=== PATIENT | male | born 1950 | race Caucasian/White ===

== ENCOUNTER 2017-05-01 23:13 | Inpatient (IN) | payer MEDICARE, OTHER ==
--- NOTE | 2017-05-01 23:36 | ER Document Report ---
ED Syncope and Near Syncope - General Chief Complaint: Low Blood Pressure Stated Complaint: BLOOD PRESSURE ISSUE Time Seen by Provider: 05/01/17 23:21 Mode of Arrival: Medic Information source: Patient, Relative, Emergency Med Personnel TRAVEL OUTSIDE OF THE [place] IN LAST 30 DAYS: No - HPI Patient complains to provider of: Fainting Episode witnessed (by whom): No Single episoded occurred: THIS PM Symptoms prior to episode: None Position/Activity at time of episode: Sitting - EATING PIZZA Quality of pain: No pain Context: Became unresponsive Duration of LOC (min): 10 Injury location: None Current symptoms: None/feels back to normal Similar symptoms previously: Yes - ONCE, YEARS AGO Recently seen / treated by doctor: No - Related Data Allergies/Adverse Reactions: No Known Allergies Allergy (Unverified 05/02/17 00:33) Home Medications: Current Home Medications Diclofenac Sodium 75 mg PO BID 05/02/17 [History] Escitalopram Oxalate 20 mg PO DAILY 05/02/17 [History] Hydrocodone/Acetaminophen [Hydrocodon-Acetaminophn 10-325] 1 each PO Q6H PRN 02/07 [History] Levothyroxine Sodium [Synthroid 0.075 mg Tablet] 0.075 mg PO DAILY 05/02/17 [ History] Lisinopril 10 mg PO DAILY 05/02/17 [History] Omeprazole 40 mg PO DAILY 05/02/17 [History] Pioglitazone HCl 45 mg PO DAILY 05/02/17 [History] Tamsulosin HCl 0.4 mg PO BID 05/02/17 [History] Tizanidine HCl 4 mg PO Q6H 05/02/17 [History] Past Medical History - General Information source: Patient, Relative - Social History Smoking Status: Unknown if Ever Smoked Cigarette use (# per day): No Chew tobacco use (# tins/day): No Frequency of alcohol use: Occasional Drug Abuse: None Lives with: Spouse/Significant other Family History: None Patient has suicidal ideation: No Patient has homicidal ideation: No - Past Medical History Cardiac Medical History: Reports: Hx Hypertension Denies: Hx Heart Attack Pulmonary Medical History: Reports: None EENT Medical History: Reports: None Neurological Medical History: Reports: None Endocrine Medical History: Reports: Hx Diabetes Mellitus Type 2 Renal/ Medical History: Reports: None Malignancy Medical History: Reports None GI Medical History: Reports: None Musculoskeltal Medical History: Reports None Skin Medical History: Reports None Psychiatric Medical History: Reports: None Infectious Medical History: Reports: None Past Surgical History: Reports: Hx Gastric Bypass Surgery - GASTRIC SLEEVE Review of Systems - Review of Systems Constitutional: Diaphoresis. denies: Chills, Fever EENT: No symptoms reported Cardiovascular: See HPI Respiratory: No symptoms reported. denies: Cough, Short of breath Gastrointestinal: No symptoms reported. denies: Diarrhea, Nausea, Vomiting Genitourinary: No symptoms reported Musculoskeletal: No symptoms reported Skin: No symptoms reported Neurological/Psychological: No symptoms reported Physical Exam - Vital signs Vitals: Temp 97.3 F 05/01/17 23:16 Interpretation: Hypotensive, Bradycardic - General General appearance: Appears well, Alert In distress: None - HEENT Head: Normocephalic Eyes: Normal Conjunctiva: Normal Ears: Normal Nasal: Normal Mouth/Lips: Normal Mucous membranes: Normal Pharynx: Normal Neck: Normal - Respiratory Respiratory status: No respiratory distress Breath sounds: Normal - Cardiovascular Rhythm: Regular, Bradycardia Heart sounds: Normal auscultation Murmur: No - Abdominal Inspection: Obese Bowel sounds: Normal - Back Back: Normal - Extremities General upper extremity: Normal inspection General lower extremity: Normal inspection. No: Tender, Edema - Neurological Neuro grossly intact: Yes Cognition: Normal Orientation: AAOx4 - Psychological Associated symptoms: Normal affect, Normal mood - Skin Skin Temperature: Warm Skin Moisture: Moist Skin Color: Normal Skin Turgor: Elastic Course - Vital Signs Vital signs: Temp Pulse Resp BP Pulse Ox 97.3 F 49 L 13 93/54 L 96 05/01/17 23:16 05/02/17 00:00 05/02/17 00:00 05/02/17 00:00 05/02/17 00:00 - Laboratory Result Diagrams: 05/01/17 23:42 05/01/17 23:42 Laboratory results interpreted by me: 05/01/17 05/01/17 23:42 23:42 RBC 3.95 L Hgb 12.6 L Hct 37.0 L Chloride 110 H Carbon Dioxide 18 L Total Bilirubin < 0.1 L ALT 19 L Total Protein 6.2 L - Diagnostic Test Radiology reviewed: Image reviewed, Reports reviewed - EKG Interpretation by Me EKG shows normal: Sinus rhythm Rate: Bradycardia - Consults DR. KIM Time consulted: 00:35 Consulted provider: will come to ER Discharge - Discharge Clinical Impression: Syncope, cardiogenic, Symptomatic bradycardia Condition: Good Disposition: ADMITTED OBSERVATION Admitting Provider: Hospitalist Unit Admitted: [facility]
[2017-05-02 00:03] LABS: ABSOLUTE BASOPHILS # (AUTO) 0.1 10^3/uL (0.0-0.2); ABSOLUTE EOSINOPHILS # (AUTO) 0.1 10^3/uL (0.0-0.6); ABSOLUTE LYMPHOCYTES (AUTO) 0.7 10^3/uL (0.5-4.7); ABSOLUTE MONOCYTES (AUTO) 0.4 10^3/uL (0.1-1.4); ABSOLUTE NEUT (AUTO) 3.1 10^3/uL (1.7-8.2); BASOPHILS % (AUTO) 1.2 % (0-2); EOSINOPHILS % (AUTO) 2.1 % (0-6); HEMOGLOBIN 12.6 g/dL (13.5-17.0); LYMPHOCYTES % (AUTO) 16.2 % (13-45); MEAN CORPUSCULAR HEMOGLOBIN 31.9 pg (27.0-33.4); MEAN CORPUSCULAR HGB CONC 34.2 g/dL (32.0-36.0); MEAN CORPUSCULAR VOLUME 94 fl (80-97); MONOCYTES % (AUTO) 9.6 % (3-13); PLATELET COUNT 154 10^3/uL (150-450); RED BLOOD COUNT 3.95 10^6/uL (4.35-5.55); RED CELL DISTRIBUTION WIDTH 13.2 % (11.5-14.0); SEGMENTED NEUTROPHILS % (AUTO) 70.9 % (42-78); TOTAL CELLS COUNTED % (AUTO) 100 %; WHITE BLOOD COUNT 4.4 10^3/uL (4.0-10.5)
[2017-05-02 00:05] LABS: ALANINE AMINOTRANSFERASE 19 U/L (21-72); ALKALINE PHOSPHATASE 81 U/L (38-126); ANION GAP 15 (5-19); ASPARTATE AMINO TRANSFERASE 18 U/L (17-59); BLOOD UREA NITROGEN 19 mg/dL (7-20); CALCIUM 8.9 mg/dL (8.4-10.2); CARBON DIOXIDE 18 mmol/L (22-30); CHLORIDE 110 mmol/L (98-107); CREATINE KINASE 99 U/L (55-170); GLUCOSE 95 mg/dL (75-110); MAGNESIUM 1.9 mg/dL (1.6-2.3); POTASSIUM 3.8 mmol/L (3.6-5.0); SODIUM 142.6 mmol/L (137-145); TOTAL PROTEIN 6.2 g/dL (6.3-8.2)
[2017-05-02 00:06] LABS: BILIRUBIN,TOTAL < 0.1 mg/dL (0.2-1.3)
[2017-05-02 00:17] LABS: CREATINE KINASE MB 1.44 ng/mL (<4.55); NT PRO BNP 87 pg/mL (5-900)
[2017-05-02 00:28] LABS: TROPONIN I < 0.012 ng/mL
[2017-05-02 00:48] LABS: APPEARANCE,URINE SLIGHTLY-CLOUDY; BILIRUBIN,URINE NEGATIVE (NEGATIVE); COLOR,URINE YELLOW; GLUCOSE, URINE NEGATIVE (NEGATIVE); KETONES,URINE NEGATIVE (NEGATIVE); LEUKOCYTE ESTERASE,URINE NEGATIVE (NEGATIVE); NITRITE,URINE NEGATIVE (NEGATIVE); PROTEIN,URINE NEGATIVE (NEGATIVE); URINE SPECIFIC GRAVITY 1.014; UROBILINOGEN,URINE NEGATIVE mg/dL (<2.0)
[2017-05-02] MEDS ORDERED: ACETAMINOPHEN 325 MG TABLET PO PRN (01:14)
[2017-05-02 01:25] LABS: VENOUS BLOOD BASE EXCESS -6.1 mmol/L; VENOUS BLOOD HCO3 20.3 mmol/L (20-32); VENOUS BLOOD PCO2 43.4 mmHg (35-63); VENOUS BLOOD PH 7.29 (7.30-7.42)
[2017-05-02 01:47] LABS: URINE AMPHETAMINES SCREEN NEGATIVE; URINE BARBITURATES SCREEN NEGATIVE; URINE BENZODIAZEPINES SCREEN UNCONFIRMED POSITIVE; URINE COCAINE SCREEN NEGATIVE; URINE MARIJUANA (THC) SCREEN UNCONFIRMED POSITIVE; URINE METHADONE SCREEN NEGATIVE; URINE PHENCYCLIDINE SCREEN NEGATIVE
[2017-05-02] MEDS ORDERED: INSULIN LISPRO 100 UNIT/ML 3 ML VIAL SUBCUT PRN (01:51)
[2017-05-02] MEDS ORDERED: DEXTROSE 50%-WATER 25 GM/50 ML DISP.SYRIN IV PRN ×2 (01:51)
[2017-05-02] MEDS ORDERED: GLUCAGON,HUMAN RECOMB 1 MG INJ IM PRN (01:51)
[2017-05-02] MEDS ORDERED: DEXTROSE 40% GEL 15 GM TUBE PO PRN ×2 (01:51)
[2017-05-02] MEDS ORDERED: THIAMINE HCL 100 MG, FOLIC ACID 1 MG in NORMAL SALINE 250 ML IV ONE (01:56)
[2017-05-02] MEDS ORDERED: MAGNESIUM SULFATE/D5W 1 GM/100 ML RTUPB IV ONE (01:57)
[2017-05-02] MEDS: NORMAL SALINE 1000 ML 1,000 ML IV PRN ×2 (02:03→10:45)
[2017-05-02] MEDS ORDERED: THIAMINE HCL INJ 200 MG/2 ML VIAL IV PRN (02:21)
[2017-05-02] MEDS ORDERED: FOLIC ACID INJ 5 MG/1 ML 10 ML VIAL IV PRN (02:21)
[2017-05-02 03:15] LABS: FREE T3 3.07 pg/mL (2.77-5.27); FREE T4 (FREE THYROXINE) 0.89 ng/dL (0.78-2.19)
[2017-05-02 03:29] LABS: THYROID STIMULATING HORMONE 12.4 uIU/mL (0.47-4.68)
[2017-05-02] MEDS ORDERED: LEVOTHYROXINE SODIUM 0.075 MG TABLET PO SCH (06:00)
[2017-05-02] MEDS: HEPARIN SOD (PORCINE) 5,000 UNIT/ML 1 ML SYRINGE SUBCUT SCH ×3 (06:20→21:54)
[2017-05-02 06:55] LABS: CREATINE KINASE MB 9.05 ng/mL (<4.55)
[2017-05-02 07:04] LABS: TROPONIN I < 0.012 ng/mL
--- NOTE | 2017-05-02 07:48 | EKG REPORT ---
SEVERITY:- OTHERWISE NORMAL ECG - SINUS BRADYCARDIA : Confirmed by: Won Sharma MD 02-May-2017 07:47:35
--- NOTE | 2017-05-02 07:48 | EKG REPORT ---
SEVERITY:- NORMAL ECG - SINUS RHYTHM : Confirmed by: Won Sharma MD 02-May-2017 07:47:26
--- NOTE | 2017-05-02 07:55 | PDOC H&P ---
History of Present Illness Admission Date/PCP: 05/02/17 01:34 Cary Chisholm History of Present Illness: CASI BEST JR is a 66 year old male with past medical history of obesity, obstructive sleep apnea, diabetes mellitus, hypertension, squamous cell cancer, LAP-BAND failure with gastric sleeve who presents to the emergency department syncope. Patient reports that he had several shots of liquor tonight as well as several beers and took at least 3 Zanaflex and 2 Xanax. He reports that he slept and then began eating pizza when he wandered into his kitchen and passed out. He did not hit his head. He denies any antecedent illness. He reports that several years ago he was told he needed a pacemaker for his bradycardia. Patient currently denies any chest pain. He was given a liter of IV fluids by the EMS service with improvement of his heart rate and blood pressure. He is referred to hospital service for some dramatic bradycardia and syncope. Upon bedside review of patient's medications a bottle of #360 Zanaflex contains only 6 tablets and this was filled on 03/23/2017. Past Medical History Cardiac Medical History: Reports: Hyperlipidema, Hypertension Denies: Myocardial Infarction Pulmonary Medical History: Reports: Sleep Apnea EENT Medical History: Reports: None Neurological Medical History: Reports: None Endocrine Medical History: Reports: Diabetes Mellitus Type 2, Obesity Renal/ Medical History: Reports: None Malignancy Medical History: Reports: None GI Medical History: Reports: None Musculoskeltal Medical History: Reports: None Skin Medical History: Reports: None Psychiatric Medical History: Reports: Alcohol Dependency, Substance Abuse Infectious Medical History: Reports: None Past Surgical History Past Surgical History: Reports: Gastric Bypass Surgery - GASTRIC SLEEVE, Orthopedic Surgery, Tonsillectomy Social History Lives with: Spouse/Significant other Smoking Status: Never Smoker Frequency of Alcohol Use: Heavy Amount of Alcoholic Beverages Per Day: Admits to 6-8 beers daily and some shots Hx Recreational Drug Use: Yes Drugs: Other Hx Prescription Drug Abuse: Yes - Advance Directive Resuscitation Status: Full Code Surrogate healthcare decision maker:: Kina Best, Family History Family History: COPD, Malignancy Parental Family History Reviewed: Yes Children Family History Reviewed: Yes Sibling(s) Family History Reviewed.: Yes Medication/Allergy Home Medications: Diclofenac Sodium 75 mg PO BID 05/02/17 Escitalopram Oxalate 20 mg PO DAILY 05/02/17 Hydrocodone/Acetaminophen [Hydrocodon-Acetaminophn 10-325] 1 each PO Q6H PRN 02/07 Levothyroxine Sodium [Synthroid 0.075 mg Tablet] 0.075 mg PO DAILY 05/02/17 Lisinopril 10 mg PO DAILY 05/02/17 Omeprazole 40 mg PO DAILY 05/02/17 Pioglitazone HCl 45 mg PO DAILY 05/02/17 Tamsulosin HCl 0.4 mg PO BID 05/02/17 Tizanidine HCl 4 mg PO Q6H 05/02/17 Allergies/Adverse Reactions: No Known Allergies Allergy (Unverified 05/02/17 00:33) Review of Systems Constitutional: ABSENT: chills, fever(s), headache(s), weight gain, weight loss Eyes: ABSENT: visual disturbances Ears: ABSENT: hearing changes Cardiovascular: ABSENT: chest pain, dyspnea on exertion, edema, orthropnea, palpitations Respiratory: ABSENT: cough, hemoptysis Gastrointestinal: ABSENT: abdominal pain, constipation, diarrhea, hematemesis, hematochezia, nausea, vomiting Genitourinary: ABSENT: dysuria, hematuria Musculoskeletal: ABSENT: joint swelling Integumentary: ABSENT: rash, wounds Neurological: PRESENT: syncope. ABSENT: abnormal gait, abnormal speech, confusion, dizziness, focal weakness Psychiatric: ABSENT: anxiety, depression, homidical ideation, suicidal ideation Endocrine: ABSENT: cold intolerance, heat intolerance, polydipsia, polyuria Hematologic/Lymphatic: ABSENT: easy bleeding, easy bruising Physical Exam Vital Signs: Temp Pulse Resp BP Pulse Ox 97.3 F 51 L 16 102/59 L 96 05/01/17 23:16 05/02/17 01:00 05/02/17 01:00 05/02/17 01:00 05/02/17 01:00 General appearance: PRESENT: no acute distress, obese, well-developed, well- nourished Head exam: PRESENT: atraumatic, normocephalic Eye exam: PRESENT: conjunctiva pink, EOMI, PERRLA. ABSENT: scleral icterus Ear exam: PRESENT: normal external ear exam Mouth exam: PRESENT: dry mucosa, tongue midline Neck exam: ABSENT: carotid bruit, JVD, lymphadenopathy, thyromegaly, tracheal deviation Respiratory exam: PRESENT: clear to auscultation [place], unlabored. ABSENT: rales , rhonchi, wheezes Cardiovascular exam: PRESENT: RRR, +S1, +S2. ABSENT: diastolic murmur, rubs, systolic murmur Pulses: PRESENT: normal dorsalis pedis pul Vascular exam: PRESENT: normal capillary refill GI/Abdominal exam: PRESENT: normal bowel sounds, soft. ABSENT: distended, guarding, mass, organolmegaly, rebound, tenderness Rectal exam: PRESENT: deferred Extremities exam: PRESENT: full ROM. ABSENT: calf tenderness, clubbing, pedal edema Neurological exam: PRESENT: alert, awake, oriented to person, oriented to place , oriented to time, oriented to situation, CN II-XII grossly intact. ABSENT: motor sensory deficit Psychiatric exam: PRESENT: appropriate affect, normal mood. ABSENT: homicidal ideation, suicidal ideation Skin exam: PRESENT: dry, intact, warm. ABSENT: cyanosis, rash Results Laboratory Results: 05/01/17 05/01/17 05/01/17 23:42 23:42 23:42 WBC 4.4 Hgb 12.6 L MCV 94 Plt Count 154 VBG pH Sodium 142.6 Potassium 3.8 Chloride 110 H Carbon Dioxide 18 L Anion Gap 15 BUN 19 Creatinine 0.91 Glucose 95 Calcium 8.9 Magnesium 1.9 Total Bilirubin < 0.1 L AST 18 ALT 19 L Alkaline Phosphatase 81 Creatine Kinase 99 CK-MB (CK-2) 1.44 Troponin I TSH Free T4 Free T3 pg/mL Urine Opiates Screen U Benzodiazepines Scrn U Marijuana (THC) Screen 05/01/17 05/02/17 05/02/17 23:42 00:28 01:15 WBC Hgb MCV Plt Count VBG pH 7.29 L Sodium Potassium Chloride Carbon Dioxide Anion Gap BUN Creatinine Glucose Calcium Magnesium Total Bilirubin AST ALT Alkaline Phosphatase Creatine Kinase CK-MB (CK-2) Troponin I TSH 12.40 H Free T4 0.89 Free T3 pg/mL 3.07 Urine Opiates Screen UNCONFIRMED POSITIVE U Benzodiazepines Scrn UNCONFIRMED POSITIVE U Marijuana (THC) Screen UNCONFIRMED POSITIVE 05/02/17 05/02/17 06:07 06:07 WBC Hgb MCV Plt Count VBG pH Sodium Potassium Chloride Carbon Dioxide Anion Gap BUN Creatinine Glucose Calcium Magnesium Total Bilirubin AST ALT Alkaline Phosphatase Creatine Kinase 234 H CK-MB (CK-2) 9.05 H Troponin I < 0.012 TSH Free T4 Free T3 pg/mL Urine Opiates Screen U Benzodiazepines Scrn U Marijuana (THC) Screen Assessment & Plan - Diagnosis (1) Symptomatic bradycardia Is this a current diagnosis for this admission?: Yes Plan: Place patient on IMCU with pacer pads. Patient is bradycardic, but appears to respond to fluids and stimuli. Will obtain echo. Concern for underlying cardiomyopathy in light of patient's use of Actos, alcohol, and abuse of medications. Will rule out for acute coronary syndrome. Feel the patient's bradycardia is also highly contributed to his abuse of Zanaflex which can cause bradycardia and syncope. (2) Polysubstance abuse Is this a current diagnosis for this admission?: Yes Plan: Patient's drug screen is positive for opiates, benzodiazepines, and marijuana. Patient is prescribed opiates he reports and is not prescribed benzodiazepines. Patient reports misusing his Zanaflex taking the bulk of a 3 month supply and little over 30 days. 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 Place patient on thiamine, folic acid , and monitor for signs of withdrawal (5) Obstructive sleep apnea Is this a current diagnosis for this admission?: Yes Plan: Patient on CPAP of 8 nightly (6) Obesity Is this a current diagnosis for this admission?: Yes - Time Time Spent: 50 to 70 Minutes Medications reviewed and adjusted accordingly: Yes Anticipated discharge: Home Within: within 72 hours - Inpatient Certification Based on my medical assessment, after consideration of the patient's comorbidities, presenting symptoms, or acuity I expect that the services needed warrant INPATIENT care.: Yes I certify that my determination is in accordance with my understanding of Medicare's requirements for reasonable and necessary INPATIENT services [42 CFR 412.3e].: Yes Medical Necessity: Need For IV Fluids, Need For Continuous Telemetry Monitoring 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
--- NOTE | 2017-05-02 08:19 | RADIOLOGY REPORT (SQ) ---
EXAM DESCRIPTION: CHEST SINGLE VIEW COMPLETED DATE/TIME: 05/02/2017 12:24 am REASON FOR STUDY: SYNCOPE COMPARISON: None. EXAM PARAMETERS: NUMBER OF VIEWS: One view. TECHNIQUE: Single frontal radiographic view of the chest acquired. RADIATION DOSE: NA LIMITATIONS: None. FINDINGS: LUNGS AND PLEURA: No opacities, masses or pneumothorax. No pleural effusion. MEDIASTINUM AND HILAR STRUCTURES: No masses. Contour normal. HEART AND VASCULAR STRUCTURES: Mild cardiomegaly BONES: No acute findings. HARDWARE: None in the chest. OTHER: Defibrillator pads over the chest IMPRESSION: Mild cardiomegaly. No acute infiltrates TECHNICAL DOCUMENTATION: JOB ID: [id number] [employer]- All Rights Reserved
[2017-05-02] MEDS ORDERED: ESCITALOPRAM OXALATE 10 MG TABLET PO SCH (10:00)
[2017-05-02] MEDS ORDERED: (PENDING PHARMACY ID) (Diclofenac Sodium [Diclofenac Sodium] 75 MG) PO SCH (10:00)
[2017-05-02] MEDS ORDERED: PIOGLITAZONE HCL 45 MG PO SCH (10:00)
[2017-05-02] MEDS: FLUTICASONE NASAL SPRAY 50 MCG/SPRY 120 SPRAY/16 GM NASL SCH ×2 (10:35→21:53)
[2017-05-02 12:23] LABS: CREATINE KINASE MB 7.08 ng/mL (<4.55)
[2017-05-02 12:29] LABS: TROPONIN I < 0.012 ng/mL
[2017-05-02] MEDS ORDERED: NORMAL SALINE 1000 ML 1,000 ML IV PRN (13:10)
--- NOTE | 2017-05-02 14:44 | PROGRESS NOTE E ---
Progress Note NAME: CASI BEST : 1950 AGE: 66Y DATE: 05/02/2017 ROOM: ED10 SUBJECTIVE: The patient is currently lying in bed. He states that he feels okay today; overall weak. The patient denies any nausea, vomiting, diarrhea. No shortness of breath, dizziness or chest pain. The patient does admit to chills. The patient has been afebrile. His blood pressures have been in a good range and the patient does not voice any other concerns at this time. REVIEW OF SYSTEMS: Rest of the review of systems is negative. MEDICATIONS: Medications have been reviewed. OBJECTIVE: GENERAL: The patient is a 66-year-old male who is awake, alert. He is oriented to person, place, time, situation. He is verbal, conversational; does not appear to be distressed. VITAL SIGNS: As follows: Temperature is 97.3, pulse at 47, respirations 20, blood pressure 151/72. Oxygen saturation 98% on room air. SKIN: Is warm and dry. No rash. He is not diaphoretic. HEENT: Pupils are equal round, reactive to light and accommodation. Conjunctivae pink. There is no evidence of JVP. CARDIOVASCULAR: Heart is bradycardic, regular. Is no rub. CHEST: Is clear, symmetrical, unlabored. ABDOMEN: Soft, nontender, nondistended. BACK: No CVA tenderness or sacral edema. EXTREMITIES: No clubbing, cyanosis, edema. PSYCHIATRIC: Appropriate affect. DIAGNOSTICS: Lab values are as follows. Hematology obtained on 05/01/2017: WBCs are 4.4, hemoglobin is 12.6, hematocrit is 37.0, platelet count is 154,000. Chemistry obtained on 05/02/2017: Sodium is 142, potassium 3.9 chloride is 110, carbon dioxide 18, BUN 19, creatinine is 0.91, glucose 95, calcium is 8.9, magnesium is 1.9. IMPRESSION AND PLAN: 1. SYMPTOMATIC BRADYCARDIA. The patient has been seen by cardiology. The patient appears to be stable at this time. Continue to hold medication such as Zanaflex and follow. 2. POLYSUBSTANCE ABUSE. The patient has been misusing Zanaflex as well as opiates, benzo's, and marijuana. 3. DIABETES MELLITUS, TYPE 2. Will continue sliding scale coverage. Have discontinued Actos. 4. ALCOHOL DEPENDENCY, CONTINUOUS. Will continue to supplement beer as well as B vitamins. 5. OBSTRUCTIVE SLEEP APNEA. Will continue CPAP at night. 6. OBESITY. THE PATIENT IS STATUS POST GASTRIC SLEEVING. DISPOSITION: The patient is a FULL CODE. Pending the patient's symptomatology and diagnostic findings, will re-evaluate as needed. Time spent on this followup, including assessment, plan, physical examination, patient education, review of records and specialty collaboration: 60 minutes. DICTATING PHYSICIAN: KEVIN BRAY NP [id number] PHY#: [id number] [id number] JOB#: [id number] ACCT: [id number] cc: > MTDD
[2017-05-02] MEDS: BEER PO SCH (16:10)
[2017-05-02] MEDS ORDERED: NORMAL SALINE 1000 ML 1,000 ML with POTASSIUM CHLORIDE 20 MEQ, MAGNESIUM SULFATE 8 MEQ,... IV SCH ×5 (18:00)
[2017-05-02] MEDS: TAMSULOSIN HCL 0.4 MG CAP.SR.24H PO SCH (18:36)
--- NOTE | 2017-05-02 18:38 | EKG REPORT ---
SEVERITY:- OTHERWISE NORMAL ECG - SINUS BRADYCARDIA ATRIAL PREMATURE COMPLEX : Confirmed by: Won Sharma MD 02-May-2017 18:37:33
[2017-05-02 19:00] LABS: CREATINE KINASE MB 5.11 ng/mL (<4.55)
[2017-05-02 19:06] LABS: TROPONIN I < 0.012 ng/mL
--- NOTE | 2017-05-02 19:30 | XCELERA REPORT ---
[address] [address] Transthoracic Echocardiogram Report Name: CASI BEST JR Age: 66 yrs Gender: Male : 1950 Patient Status: Inpatient Patient Location: [place] [address]^A Study Date: 05/02/2017 09:49 AM Height: 71 in Weight: 250 lb BSA: 2.3 m2 Procedure: A complete two-dimensional transthoracic echocardiogram was performed (2D, M-mode, spectral and color flow Doppler). The study was technically difficult with many images being suboptimal in quality. Reason For Study: bradycardia, cardiomyopathy Ordering Physician: KALANI MURPHY Performed By: Abril Victoria Interpretation Summary Left ventricular systolic function is low normal. There is normal left ventricular wall thickness. The left ventricle is grossly normal size. Doppler measurements suggest pseudonormalized left ventricular relaxation, which is associated with grade II/IV or mild to moderate diastolic dysfunction Wall motion cannot be accurately commented on, but no definite regional wall motion abnormalities noted. The right ventricle is mildly dilated. The right ventricular systolic function is normal. The right atrium is normal. The left atrium is mildly dilated. There is a trace amount of mitral regurgitation There is no mitral valve stenosis. There is no aortic valve stenosis No aortic regurgitation is present. There is a trace to mild amount of tricuspid regurgitation There is mild to moderate pulmonary hypertension by echo Right ventricular systolic pressure is estimated to be elevated at 40- 50mmHg. The aortic root is not well visualized. The inferior vena cava was not well visualized There is no pericardial effusion. MMode/2D Measurements & Calculations RVDd: 3.7 cm LVIDd: 6.6 cm FS: 36.5 % Ao root diam: 2.7 cm IVSd: 0.78 cm LVIDs: 4.2 cm EDV(Teich): 226.2 ml LVPWd: 1.1 cm ESV(Teich): 79.0 ml Ao root area: 5.6 cm2 EF(Teich): 65.1 % LA dimension: 3.9 cm Doppler Measurements & Calculations MV E max mikayla: MV P1/2t max mikayla: Ao V2 max: LV V1 max P.7 cm/sec 101.7 cm/sec 162.9 cm/sec 4.3 mmHg MV A max mikayla: MV P1/2t: 92.2 msec Ao max PG: LV V1 max: 103.2 cm/sec 10.6 mmHg 104.1 cm/sec MV E/A: 1.0 MVA(P1/2t): 2.4 cm2 MV dec slope: 322.9 cm/sec2 PA V2 max: 109.6 cm/sec PA max P.8 mmHg Left Ventricle The left ventricle is grossly normal size. There is normal left ventricular wall thickness. Left ventricular systolic function is low normal. Doppler measurements suggest pseudonormalized left ventricular relaxation, which is associated with grade II/IV or mild to moderate diastolic dysfunction. Wall motion cannot be accurately commented on, but no definite regional wall motion abnormalities noted. Right Ventricle The right ventricle is mildly dilated. There is normal right ventricular wall thickness. The right ventricular systolic function is normal. Atria The right atrium is normal. The left atrium is mildly dilated. Interarterial septum not well visualized and not well dopplered. Cannot comment on ASD/PFO presence. Mitral Valve The mitral valve is grossly normal. There is no mitral valve stenosis. There is a trace amount of mitral regurgitation. Aortic Valve The aortic valve is not well visualized secondary to technical limitations. There is no aortic valve stenosis. No aortic regurgitation is present. Tricuspid Valve The tricuspid valve is not well visualized secondary to technical limitations. There is no tricuspid stenosis. There is a trace to mild amount of tricuspid regurgitation. There is mild to moderate pulmonary hypertension by echo. Right ventricular systolic pressure is estimated to be elevated at 40-50mmHg. Pulmonic Valve The pulmonic valve is not well visualized. Great Vessels The aortic root is not well visualized. The inferior vena cava was not well visualized. Effusions There is no pericardial effusion. : KALANI MURPHY > Wilfrido Aburto
[2017-05-02] MEDS ORDERED: MONTELUKAST SODIUM 10 MG TABLET PO SCH (22:00)
[2017-05-03] MEDS ORDERED: LEVOTHYROXINE SODIUM 0.075 MG TABLET PO SCH (06:00)
[2017-05-03 06:35] LABS: ABSOLUTE EOSINOPHILS # (AUTO) 0.1 10^3/uL (0.0-0.6); ABSOLUTE LYMPHOCYTES (AUTO) 0.9 10^3/uL (0.5-4.7); ABSOLUTE MONOCYTES (AUTO) 0.4 10^3/uL (0.1-1.4); ABSOLUTE NEUT (AUTO) 2.5 10^3/uL (1.7-8.2); BASOPHILS % (AUTO) 0.8 % (0-2); EOSINOPHILS % (AUTO) 2.3 % (0-6); HEMATOCRIT 37.5 % (37.9-51.0); HEMOGLOBIN 12.7 g/dL (13.5-17.0); LYMPHOCYTES % (AUTO) 22.7 % (13-45); MEAN CORPUSCULAR HEMOGLOBIN 31.6 pg (27.0-33.4); MEAN CORPUSCULAR HGB CONC 33.9 g/dL (32.0-36.0); MEAN CORPUSCULAR VOLUME 93 fl (80-97); MONOCYTES % (AUTO) 9.9 % (3-13); PLATELET COUNT 137 10^3/uL (150-450); RED BLOOD COUNT 4.02 10^6/uL (4.35-5.55); RED CELL DISTRIBUTION WIDTH 13.6 % (11.5-14.0); SEGMENTED NEUTROPHILS % (AUTO) 64.3 % (42-78); TOTAL CELLS COUNTED % (AUTO) 100 %; WHITE BLOOD COUNT 3.9 10^3/uL (4.0-10.5)
[2017-05-03 06:46] LABS: ANION GAP 10 (5-19); BLOOD UREA NITROGEN 12 mg/dL (7-20); CALCIUM 9.2 mg/dL (8.4-10.2); CARBON DIOXIDE 24 mmol/L (22-30); CHLORIDE 111 mmol/L (98-107); CHOLESTEROL 222.12 mg/dL (0-200); GLUCOSE 98 mg/dL (75-110); MAGNESIUM 2.1 mg/dL (1.6-2.3); PHOSPHORUS 3.4 mg/dL (2.5-4.5); POTASSIUM 4.2 mmol/L (3.6-5.0); SODIUM 144.5 mmol/L (137-145); TRIGLYCERIDES 223 mg/dL (<150)
[2017-05-03 06:56] LABS: DIRECT LDL 152 mg/dL (<100)
[2017-05-03 07:04] LABS: VLDL CHOLESTEROL 44.6 mg/dL (10-31)
[2017-05-03] MEDS: HEPARIN SOD (PORCINE) 5,000 UNIT/ML 1 ML SYRINGE SUBCUT SCH ×2 (07:12→16:03)
[2017-05-03] MEDS ORDERED: LANSOPRAZOLE 30 MG TAB.RAP.DR PO SCH (08:00)
--- NOTE | 2017-05-03 08:03 | EKG REPORT ---
SEVERITY:- NORMAL ECG - SINUS RHYTHM : Confirmed by: Won Sharma MD 03-May-2017 08:02:30
[2017-05-03] MEDS: BEER PO SCH ×3 (08:51→12:45)
[2017-05-03] MEDS ORDERED: ESCITALOPRAM OXALATE 10 MG TABLET PO SCH (10:00)
--- NOTE | 2017-05-03 10:44 | PDOC CONSULTATION ---
Consultation Consult Date: 05/02/17 Attending physician:: KEVIN BRAY Consult reason:: Chest pain History of Present Illness Admission Date/PCP: 05/02/17 01:34 Patient complains of: Syncope History of Present Illness: CASI BEST JR is a 66 year old male with past medical history of obesity, obstructive sleep apnea, diabetes mellitus, hypertension, squamous cell cancer, LAP-BAND failure with gastric sleeve who presents to the emergency department syncope. Patient reports that he had several shots of liquor tonight as well as several beers and took at least 3 Zanaflex and 2 Xanax. He reports that he slept and then began eating pizza when he wandered into his kitchen and passed out. He did not hit his head. He denies any antecedent illness. He reports that several years ago he was told he needed a pacemaker for his bradycardia. Patient currently denies any chest pain. He was given a liter of IV fluids by the EMS service with improvement of his heart rate and blood pressure. He is referred to hospital service for some dramatic bradycardia and syncope. This history was reviewed, confirmed and supplemented. Patient denied any prior history of myocardial infarction angina or congestive heart failure. Past Medical History Cardiac Medical History: Reports: Hyperlipidema, Hypertension Denies: Myocardial Infarction Pulmonary Medical History: Reports: None, Sleep Apnea EENT Medical History: Reports: None Neurological Medical History: Reports: None Endocrine Medical History: Reports: Diabetes Mellitus Type 2, Obesity Renal/ Medical History: Reports: None Malignancy Medical History: Reports: None GI Medical History: Reports: None Musculoskeltal Medical History: Reports: None Skin Medical History: Reports: None Psychiatric Medical History: Reports: None, Alcohol Dependency, Substance Abuse Infectious Medical History: Reports: None Past Surgical History Past Surgical History: Reports: Gastric Bypass Surgery - GASTRIC SLEEVE, Orthopedic Surgery, Tonsillectomy Social History Information Source: Patient Lives with: Spouse/Significant other Smoking Status: Former Smoker Number of Years Smokin Last Time Smoked: 1979 Frequency of Alcohol Use: Heavy Hx Recreational Drug Use: No Drugs: None Hx Prescription Drug Abuse: No - Advance Directive Resuscitation Status: Full Code Surrogate healthcare decision maker:: Patient spouse Family History Family History: COPD, Malignancy Parental Family History Reviewed: Yes Children Family History Reviewed: Yes Sibling(s) Family History Reviewed.: Yes Medication/Allergy Home Medications: Diclofenac Sodium [Voltaren] 75 mg PO BID 05/02/17 Escitalopram Oxalate [Lexapro] 20 mg PO DAILY 05/02/17 Levothyroxine Sodium [Synthroid] 75 mcg PO Q6AM 05/02/17 Lisinopril [Prinivil 10 mg Tablet] 10 mg PO DAILY 05/02/17 Omeprazole 40 mg PO DAILY 05/02/17 Tamsulosin HCl [Flomax 0.4 mg Cap.sr] 0.4 mg PO BID 05/02/17 Fluticasone Propionate [Flonase Nasal [place] 50 Mcg/[place] 16 gm] 1 spray NASL Q12 #1 spray.pump 05/03/17 Montelukast Sodium [Singulair 10 mg Tablet] 10 mg PO QHS #30 tablet 05/03/17 Allergies/Adverse Reactions: No Known Allergies Allergy (Unverified 05/02/17 00:33) Review of Systems Review of Systems: Please see history of present illness and past medical history as wall. Constitutional: No fever or chills reported. Head : No recent chronic headaches, recent head injury. Eyes: No recent eye pain, diplopia, redness, discharge, acute visual changes. Ears: No recent chronic ear pain, acute hearing loss, ear discharge. Oral cavity: No recent ulcerations, bleeding, oral cavity discomfort. Neck: No recent acute neck pain reported. Hematologic: No recent easy bruising or bleeding or hematologic malignancy reported. Lymphatic: No recent lymphatic malignancy, chronic lymphadenopathy reported yet Cardiovascular system review: See history of present illness. Respiratory system review: No recent chronic cough, hemoptysis, blood clots in the lungs reported. Mild Shortness of breath on exertion Gastrointestinal system review: Negative for any recent acute or chronic abdominal pain, hematemesis, melena, recent change in bowel habits. Genitourinary system review: No recent acute or chronic hematuria, flank pain, UTI etc. reported. Skin system review: Negative for any recent abnormal bruising, no rash, no pruritus reported. Neurologic: No prior history of strokes, mini strokes, seizure disorder. Psychologic: No history of major psychosis or major depression reported. Musculoskeletal: Minor aches and pains reported. No acute joint swelling reported. Endocrine: No recent polyuria, polydipsia, recent heat or cold intolerance. Physical Exam Vital Signs: Temp Pulse Resp BP Pulse Ox 98.8 F 45 L 20 165/75 H 96 05/03/17 07:08 05/03/17 07:08 05/03/17 07:08 05/03/17 07:08 05/03/17 07:08 Intake & Output 05/02/17 05/03/17 05/04/17 06:59 06:59 06:59 Intake Total 610 Output Total 1100 Balance -490 Weight 119.6 kg Exam: GENERAL: well-nourished and in no acute distress. Alert and oriented x3 HEAD: Atraumatic, normocephalic. EYES: Pupils equal round and reactive to light, extraocular movements intact, sclera anicteric, conjunctiva are normal. ENT: TMs normal, nares patent, oropharynx clear without exudates. Moist mucous membranes. No oral ulcerations or bleeding gums noted NECK: supple without lymphadenopathy. Trachea is central. No cervical or axillary lymphadenopathy noted. Carotids are 2+, JVD WNL LUNGS: Respiration seems nonlabored, no significant accessory muscle action noted. Breath sounds clear to auscultation bilaterally and equal noted. No wheezes rales or rhonchi noted. No significant dullness noted on percussion. CHEST: Palpation of the chest wall shows no significant chest wall tenderness. No other significant abnormalities noted. 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 ABDOMEN: Soft, no significant tenderness appreciated, normoactive bowel sounds. No guarding, no rebound. No rigidity noted . No masses appreciated. EXTREMITIES: Pedal pulses are 1-2+, no calf tenderness noted. No clubbing or cyanosis. Negative pedal edema noted NEUROLOGICAL: Focused neurological exam showed no significant neurologic deficit. Normal speech, no focal weakness appreciated. PSYCH: Normal mood, normal affect. Judgment and insight within normal limits. SKIN: No significant ecchymosis, rash, ulcerations or signs of pruritus noted. MUSCULOSKELETAL EXAM: No significant joint swelling noted. Results Laboratory Results: 05/03/17 05:31 05/03/17 05:31 05/03/17 05/03/17 05/03/17 05:31 05:31 05:31 WBC 3.9 L RBC 4.02 L Hgb 12.7 L Hct 37.5 L MCV 93 MCH 31.6 MCHC 33.9 RDW 13.6 Plt Count 137 L Seg Neutrophils % 64.3 Lymphocytes % 22.7 Monocytes % 9.9 Eosinophils % 2.3 Basophils % 0.8 Absolute Neutrophils 2.5 Absolute Lymphocytes 0.9 Absolute Monocytes 0.4 Absolute Eosinophils 0.1 Absolute Basophils 0.0 Sodium 144.5 Potassium 4.2 Chloride 111 H Carbon Dioxide 24 Anion Gap 10 BUN 12 Creatinine 0.64 Est GFR ( Amer) > 60 Est GFR (Non-Af Amer) > 60 Glucose 98 Calcium 9.2 Phosphorus 3.4 Magnesium 2.1 Triglycerides 223 H Cholesterol 222.12 H LDL Cholesterol Direct 152 H VLDL Cholesterol 44.6 H HDL Cholesterol 48 05/02/17 05/02/17 05/02/17 06:07 06:07 11:39 Creatine Kinase 234 H 197 H CK-MB (CK-2) 9.05 H Troponin I < 0.012 05/02/17 05/02/17 05/02/17 11:39 17:57 17:57 Creatine Kinase 215 H CK-MB (CK-2) 7.08 H 5.11 H Troponin I < 0.012 < 0.012 EKG Comments: Sinus bradycardia no acute ST-T wave changes noted Impressions: Chest X-Ray 05/01/17 23:28 IMPRESSION: Mild cardiomegaly. No acute infiltrates Assessment & Plan - Diagnosis (1) Syncope Qualifiers: Encounter type: initial encounter Is this a current diagnosis for this admission?: Yes (2) Diabetes mellitus Qualifiers: Diabetes mellitus type: type 2 Diabetes mellitus complication status: without complication Diabetes mellitus [facility] insulin use: without [facility] use Qualified Code(s): E11.9 - Type 2 diabetes mellitus without complications Is this a current diagnosis for this admission?: Yes (3) Obstructive sleep apnea Is this a current diagnosis for this admission?: Yes (4) Symptomatic bradycardia Is this a current diagnosis for this admission?: Yes (5) Abnormal cardiac enzyme level Is this a current diagnosis for this admission?: Yes (6) Polysubstance abuse Is this a current diagnosis for this admission?: Yes (7) Sleep disorder Is this a current diagnosis for this admission?: Yes - Notes Notes: Echocardiogram, NST, event monitor as OP Syncope: Possibly multifactorial and could well be related to polysubstance abuse. However patient was noted to be bradycardic. Recommend cardiac monitoring to evaluate for any symptomatic bradycardia for symptom correlation. Patient has been advised to avoid polysubstance abuse. Possibility of hypo- or hyperglycemia or other cardiac dysrhythmia causing syncope is also present. Diabetes: Recommend good control but avoid any hyper or hypoglycemia. Obstructive sleep apnea: Patient claims to have this diagnosis and claims to be on CPAP therapy. Have recommended that he be compliant with it. Abnormal cardiac enzymes: Most likely related to fall but will schedule patient for a nuclear stress test. A 2D echocardiogram is also being scheduled for risk stratification and for evaluation of syncope. Patient's medications reviewed. At this point patient seems to be on adequate regimen. Patient to report any further problems. - Time Time Spent: 30 to 50 Minutes - CODE STATUS was discussed, patient remains full code. Surrogate decision-maker patient spouse. Multiple medical problems were addressed. More than 50% of the time spent coordinating care, discussing management plans with involved caregivers. Management plans discussed with involved personnels. Medical decision making was of moderate to high complexity , patient's has multiple comorbidities. Medications reviewed and adjusted accordingly: Yes
[2017-05-03] MEDS: TAMSULOSIN HCL 0.4 MG CAP.SR.24H PO SCH (11:11)
[2017-05-03] MEDS: FLUTICASONE NASAL SPRAY 50 MCG/SPRY 120 SPRAY/16 GM NASL SCH (11:12)
--- NOTE | 2017-05-03 13:41 | DRAGON STRESS TEST REPORT ---
INTRAVENOUS LEXISCAN CARDIOLITE STRESS TEST USING SINGLE PHOTON EMMISION COMPUTERIZED TOMOGRAPHIC. DATE OF PROCEDURE: May 03, 2017 INDICATION : Syncope CARDIAC RISK FACTORS: Diabetes, hypertension RESTING EKG: sinus rhythm, with mild sinus bradycardia, no baseline ST-T wave changes STRESS EKG: No significant changes noted with LexiScan bolus REASON FOR TERMINATION: Protocol. PROCEDURE REPORT: Baseline heart rate noted 49 beats per minute with blood pressure of 156/70. Patient had no significant complaints. Heart rate at 2 minutes post bolus 76 with a blood pressure of 162/63. 3 minutes post bolus heart rate 71 with blood pressure of 170/74. No significant EKG changes were noted. Patient had no significant complaints during the procedure or postprocedure. Patient injected with Aminophyllin 75 mg at 3 minutes or later after Lexiscan bolus. CONCLUSIONS: Normal EKG and hemodynamic response to IV LexiScan. NUCLEAR DATA: At rest the patient was given 14.77 millicuries of technetium 99 sestamibi injected intravenously. As per protocol rest gated SPECT images were obtained. Subsequently the patient was given intravenous LexiScan at a dose of 0.4 mg in 5 mL intravenously, followed by flush with normal saline. Subsequently the stress dose of 46.1 millicuries of technetium 99 sestamibi was injected intravenously. As per protocol stress gated images were obtained. NUCLEAR INTERPRETATION: Both raw and processed data were used for interpretation. Visual, qualitative, computer-generated quantitative data was used. There was good myocardial uptake of technetium compound. Motion artifact and soft tissue attenuations were noted. Increased visceral uptake was noted. No definitive areas of transient perfusion defect noted. No definitive areas of fixed perfusion defect or scars noted. There is borderline decreased uptake is noted in the basal and mid anterior wall. This is felt to be mostly related to differences in attenuation artifact. No corresponding wall motion abnormalities were noted on gated imaging. Therefore likely to be false positive finding but cannot be entirely certain. EKG gated imaging showed LV EF at 52%, rest and stress gated EF similar visually. T. I D. ratio was 1.09. Lung heart ratio noted to be within normal limits 0.25. No significant extracardiac and abnormal radiotracer activities were noted. RV free wall uptake was noted to be increased. IMPRESSION: Also refer to comments under nuclear interpretation. Also test results needs to be interpreted in the context of pretest probability. 1. There is no definitive scintigraphic evidence of LexiScan induced myocardial ischemia. 2. There is no definitive scintigraphic evidence of myocardial infarction/scar. 3. EKG gated imaging shows left ventricular ejection fraction of approximately 52%. 4. Clinical correlation requested as occasionally single vessel disease or balanced ischemia could be missed. In approximately 10% of the cases Lexiscan may not cause adequate vasodilatory stress. RECOMMENDATIONS: Aggressive risk factor modification, medical therapy. May consider stress echo or cardiac CTA if clinically indicated as an outpatient. Clinical correlation with echocardiogram derived ejection fraction. Inability to exercise by itself can lead to increased cardiovascular event risks. Consider cardiology consultation and or follow-up if clinically indicated. I AM AVAILABLE FOR CARDIOLOGY CONSULTATION AND FOLLOWUP IF REQUESTED BY PMD Wilfrido Aburto M.D., [employer] Det[employer] engraver lettering, Board certified in cardiovascular diseases, Nuclear cardiology, Echocardiography Cardiac CT and cardiac MRI Ph. [phone] KERI
[2017-05-03 13:51] VITALS: BP 172/88
[2017-05-03] MEDS ORDERED: AMINOPHYLLINE INJ/PF 250 MG/10 ML SDV IV ONE (14:36)
[2017-05-03] MEDS ORDERED: REGADENOSON INJ 0.4 MG/5 ML DISP.SYRIN IV ONE (14:36)
[2017-05-03] MEDS ORDERED: LISINOPRIL 10 MG TABLET PO ONE (15:00)
--- NOTE | 2017-05-03 19:48 | PDOC PROGRESS REPORT ---
Subjective Progress Note for:: 05/03/17 Subjective:: Patient seems to be doing better with gradual improvement. Pt is denying any chest arm or neck discomfort. Patient denying any PND, orthopnea. Patient denied any sustained palpitations, dizziness, syncope, near syncope. Patient denying any fever chills. Patient denying any other significant discomfort. Patient is maintaining sinus rhythm. Telemetry strips reviewed showed mild sinus bradycardia and was noted to be asymptomatic. Review of systems: Rest review of systems negative. Medications: Medications have been reviewed. Reason For Visit: SYNCOPE,SYMPTOMATIC BRADYCARDIA Physical Exam Vital Signs: Temp Pulse Resp BP Pulse Ox 98.7 F 46 L 20 172/88 H 100 05/03/17 15:01 05/03/17 15:01 05/03/17 15:01 05/03/17 15:01 05/03/17 15:01 Intake & Output 05/02/17 05/03/17 05/04/17 06:59 06:59 06:59 Intake Total 610 Output Total 1100 Balance -490 Weight 119.6 kg Exam: GENERAL: well-nourished and in no acute distress. Alert and oriented x3 HEAD: Atraumatic, normocephalic. EYES: Pupils equal round and reactive to light, extraocular movements intact, sclera anicteric, conjunctiva are normal. ENT: TMs normal, nares patent, oropharynx clear without exudates. Moist mucous membranes. No oral ulcerations or bleeding gums noted NECK: supple without lymphadenopathy. Trachea is central. No cervical or axillary lymphadenopathy noted. Carotids are 2+, JVD WNL LUNGS: Respiration seems nonlabored, no significant accessory muscle action noted. Breath sounds clear to auscultation bilaterally and equal noted. No wheezes rales or rhonchi noted. No significant dullness noted on percussion. CHEST: Palpation of the chest wall shows no significant chest wall tenderness. No other significant abnormalities noted. 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 ABDOMEN: Soft, no significant tenderness appreciated, normoactive bowel sounds. No guarding, no rebound. No rigidity noted . No masses appreciated. EXTREMITIES: Pedal pulses are 1-2+, no calf tenderness noted. No clubbing or cyanosis.trace to 1+ pedal edema noted NEUROLOGICAL: Focused neurological exam showed no significant neurologic deficit. Normal speech, no focal weakness appreciated. PSYCH: Normal mood, normal affect. Judgment and insight within normal limits. SKIN: No significant ecchymosis, rash, ulcerations or signs of pruritus noted. MUSCULOSKELETAL EXAM: No significant joint swelling noted. Results Laboratory Results: 05/03/17 05:31 05/03/17 05:31 05/03/17 05/03/17 05/03/17 05:31 05:31 05:31 WBC 3.9 L RBC 4.02 L Hgb 12.7 L Hct 37.5 L MCV 93 MCH 31.6 MCHC 33.9 RDW 13.6 Plt Count 137 L Seg Neutrophils % 64.3 Lymphocytes % 22.7 Monocytes % 9.9 Eosinophils % 2.3 Basophils % 0.8 Absolute Neutrophils 2.5 Absolute Lymphocytes 0.9 Absolute Monocytes 0.4 Absolute Eosinophils 0.1 Absolute Basophils 0.0 Sodium 144.5 Potassium 4.2 Chloride 111 H Carbon Dioxide 24 Anion Gap 10 BUN 12 Creatinine 0.64 Est GFR ( Amer) > 60 Est GFR (Non-Af Amer) > 60 Glucose 98 Calcium 9.2 Phosphorus 3.4 Magnesium 2.1 Triglycerides 223 H Cholesterol 222.12 H LDL Cholesterol Direct 152 H VLDL Cholesterol 44.6 H HDL Cholesterol 48 05/02/17 05/02/17 05/02/17 06:07 06:07 11:39 Creatine Kinase 234 H 197 H CK-MB (CK-2) 9.05 H Troponin I < 0.012 05/02/17 05/02/17 05/02/17 11:39 17:57 17:57 Creatine Kinase 215 H CK-MB (CK-2) 7.08 H 5.11 H Troponin I < 0.012 < 0.012 EKG Comments: Telemetry strips shows mild sinus bradycardia. No other cardiac dysrhythmia noted. Impressions: Chest X-Ray 05/01/17 23:28 IMPRESSION: Mild cardiomegaly. 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 insulin use: without car installations supervisor use Qualified Code(s): E11.9 - Type 2 diabetes mellitus without complications Is this a current diagnosis for this admission?: Yes (2) Obstructive sleep apnea Is this a current diagnosis for this admission?: Yes (3) Symptomatic bradycardia Is this a current diagnosis for this admission?: Yes (4) Abnormal cardiac enzyme level Is this a current diagnosis for this admission?: Yes (5) Polysubstance abuse Is this a current diagnosis for this admission?: Yes (6) Sleep disorder Is this a current diagnosis for this admission?: Yes - Notes Notes: Patient was seen multiple times this today. In the morning nuclear stress test , risk benefits and procedure itself discussed. I also discussed results of 2D echocardiogram. Cardiac monitoring results were discussed. Patient underwent nuclear stress testing without any complications. In the afternoon we had a long discussion about the results of nuclear stress test. Based on patient's symptoms, results of the study, it was felt that medical management is the best initial option. Patient was advised to have a event monitor as an outpatient for better symptom correlation as regards bradycardia and history of syncope. Patient was advised to abstain from polysubstance abuse. Patient describes history of sleep apnea on CPAP therapy. Patient was asked to be compliant with it. Patient also advised better control of blood sugar etc. Patient offered follow- up with me. - Time Time with patient: Greater than 35 minutes - CODE STATUS was discussed, patient remains full code. Surrogate decision-maker unchanged. Multiple medical problems were addressed. More than 50% of the time spent coordinating care, discussing management plans with involved caregivers. Management plans discussed with involved personnels. Medical decision making was of moderate to high complexity, patient's has multiple comorbidities. Significant time spent going over results of cardiac evaluation and telemetry strips, further management plans with the patient. Medications reviewed and adjusted accordingly: Yes
--- NOTE | 2017-05-03 20:19 | DISCHARGE SUMMARY E ---
Discharge Summary NAME: CASI BEST : 1950 AGE: 66Y ADMITTED: 05/02/2017 DISCHARGED: 05/03/2017 CODE STATUS: FULL CODE. PRIMARY CARE PROVIDER: Cary Goodman PA-C. DISCHARGE DIAGNOSES: Include: 1. Sinus bradycardia. 2. Polysubstance abuse. 3. Diabetes mellitus type 2. 4. Continuous oxygen dependency. 5. Continuous alcohol dependency. 6. Obstructive sleep apnea. 7. Obesity. 8. Hypertension. 9. Medical noncompliance. 10. Hypertriglyceridemia. 11. Hypercholesterolemia. DISCHARGE MEDICATIONS: Include: 1. Voltaren 75 mg p.o. b.i.d. 2. Lexapro 20 mg p.o. daily. 3. Flonase 1 spray nasally q.12 h. 4. Synthroid 75 mcg p.o. every morning. 5. Lisinopril 10 mg p.o. daily. 6. Singulair 10 mg p.o. at hour of sleep. 7. Omeprazole 40 mg p.o. daily. 8. Flomax 0.4 mg p.o. b.i.d. DIET: As tolerated. ACTIVITY: As tolerated. DIAGNOSTICS: Lab values are as follows: Hematology obtained on 05/03/2017; WBCs are 3.9, hemoglobin is 12.7, hematocrit is 27.5, platelet count is 137,000. Venous blood gas obtained on 05/02/2017 pH of 7.29, pCO2 is 43.4, bicarbonate is 20.3. Chemistry obtained 05/03/2017: Sodium is 144, potassium 4.2, chloride was 111, carbon dioxide 24, BUN 12, creatinine was 0.64, glucose 98, calcium is 9.2, phosphorous 3.4, magnesium was 2.1, triglycerides were 223, cholesterol is 222, LDL 152, VLDL was 44, HDL was 48, T4 is 0.89. Urinalysis obtained on 05/02/2017: Color yellow, appearance slightly , pH is 5.0, specific gravity is 1.014, protein negative, glucose negative, ketones negative, occult blood negative, nitrite negative, bilirubin negative, urobilinogen is negative, leukocyte esterase is negative, RBCs 0, casts 15, mucus rare, ascorbic acid is negative. Toxicology obtained on 05/02/2017 is positive for opiates, benzodiazepines, and marijuana. Cardiolite stress test obtained on 05/03/2017 was "normal." Chest x-ray obtained on 05/01/2017 reveals mild cardiomegaly, no acute infiltrates. HISTORY OF PRESENT ILLNESS: The patient is a 66-year-old male with a past medical history of obstructive sleep apnea as well as diabetes. The patient presented to the emergency department with a chief complaint of being confused. The patient had had several shots of liquor the night of presentation as well as several beers. The patient took at least 3 Zanaflex as well as 2 to 4 Xanax. The patient reported that he slept and then began eating pizza. He wandered into the kitchen and then passed out. The patient denies hitting his head. Denied any antecedent illness. The patient stated that he was told years ago that he may need a pacemaker for his bradycardia and did wear a 24-hour monitor. The patient denies any chest pain. The patient was given a liter of fluid by EMS with improvement in his heart rate and blood pressure, and the patient was referred to the hospitalist for management of bradycardia and syncope. Upon review of the patient's medication bottle, he did have 360 Zanaflex that was filled on 03/23/2017. The patient had 6 tablets left. HOSPITAL COURSE: The patient was admitted to [facility]. The patient was held on his medication and was gently hydrated. The patient was seen by Cardiology given his bradycardia and underwent a stress test that was found to be essentially unremarkable. The patient's heart rate sustained in the 60s to the high 40s during the course of this stay. The patient was recommended a 30-day event monitor by Cardiology. The patient is agreeable to this. The patient was noted to have elevations in his blood pressure of up to 170 systolically. However, the patient stated that this rise in his blood pressure was due to being in the hospital and white-coat syndrome. The patient was resumed on his home blood pressure medications. The patient states that he feels "I just took my medicine wrong." The patient was counseled regarding alcohol cessation as well as compliance with his medication, and it is recommended that the patient cease taking these medications since it appears he has had trouble with this in the past. The patient is in agreement to discussing this with his primary care provider and is eager for discharge. PHYSICAL EXAMINATION: GENERAL: On examination, the patient is a well-developed, well-nourished, 66-year-old male who is awake, alert and oriented to person, place, time, and situation. He is verbal, conversational, does not appear to be in any acute distress. VITAL SIGNS: As follows: Temperature is 98.7, pulse 63, respirations 20, blood pressure is 170/88. SKIN: Warm and dry. No rash. He is not diaphoretic. HEENT: Pupils equal, round, reactive to light and accommodation. Conjunctiva is pink. NECK: There is no evidence of JVP. CARDIOVASCULAR SYSTEM: Heart is regular. There is no murmur or rub. CHEST: Clear, symmetrical, unlabored. ABDOMEN: Soft, nontender, nondistended. BACK: No CVA tenderness, sacral edema. EXTREMITIES: No clubbing, cyanosis. PSYCHIATRIC: Appropriate affect. Pleasant mood. DISCHARGE PLANNIN. The patient is advised to follow up with his primary care provider within 1 week for hospital followup. 2. The patient is to follow up with Cardiology within 1 week for event monitor placement. Time spent on this discharge including assessment plan, physical examination, patient education, review of records, and specialty collaboration is 25 minutes. DICTATING PHYSICIAN: KEVIN BRAY NP [id number] PHY#: [id number] ID: [id number] JOB#: [id number] ACCT: [id number] cc:Mara HUGHES NP > MTDD
[2017-05-03] MEDS ORDERED: DICLOFENAC SODIUM 25 MG TABLET.DR PO SCH (22:00)
[2017-05-04] MEDS ORDERED: LISINOPRIL 10 MG TABLET PO SCH (10:00)
== END 2017-05-03 16:15 | disposition home or self-care (01) | DRG 310 ==
LOC: ER 23:13 → OBSVTOIN 05-02 01:34 → EH 05-02 01:34 → 3W 05-03 00:25
PROVIDERS: ADMIT Family Medicine; ATTEND Family Medicine
DX: R00.1 Bradycardia, unspecified (principal); R55 Syncope and collapse; I10 Essential (primary) hypertension; E11.9 Type 2 diabetes mellitus without complications; E78.1 Pure hyperglyceridemia; F10.10 Alcohol abuse, uncomplicated; F11.10 Opioid abuse, uncomplicated; F12.10 Cannabis abuse, uncomplicated; F13.10 Sedative, hypnotic or anxiolytic abuse, uncomplicated; F19.10 Other psychoactive substance abuse, uncomplicated; G47.33 Obstructive sleep apnea (adult) (pediatric); E66.9 Obesity, unspecified; Y90.9 Presence of alcohol in blood, level not specified; Z68.36 Body mass index [BMI] 36.0-36.9, adult; Z98.84 Bariatric surgery status; Z91.19 Patient's noncompliance with other medical treatment and regimen
CPT/HCPCS: 36415; 71045; 78452; 80048; 80053; 80061; 80307; 81001; 82550; 82553; 82803; 82962; 83735; 83880; 84100; 84439; 84443; 84481; 84484; 85025; 93005; 93010; 93017; 93306; 94660; 99285; A9500; J0280; J1644; J2785; J3411; J3475; J3480; J3490; J7030; J7050; Q9969